=== PATIENT | female | born 1990 | race African-American/Black ===

== ENCOUNTER 2022-10-01 11:12 | Inpatient (IN) | payer BC, OTHER ==
[~2022-10-01 11:12] MED LIST: Bupivacaine 0.25% HCL 30 ML VIAL ONE; ePHEDrine Sulfate 50 MG/10 ML VIAL ONE
[2022-10-01 11:43] VITALS: BMI 49.6
[2022-10-01] MEDS ORDERED: hydrALAZINE 20 MG/ML VIAL SLOW IVP PRN (12:23)
[2022-10-01] MEDS ORDERED: Promethazine HCl 25 MG/ML VIAL IM PRN ×2 (12:23→22:32)
[2022-10-01] MEDS ORDERED: Docusate 100 MG CAP PO PRN (12:23)
[2022-10-01] MEDS ORDERED: Acetaminophen 500 MG TAB PO PRN (12:23)
[2022-10-01] MEDS ORDERED: Diphenoxylate HCl/Atropine Tablet PO PRN (12:23)
[2022-10-01] MEDS ORDERED: Calcium Gluc 4.6 MEQ/10 ML (100 MG/ML) SLOW IVP PRN (12:23)
[2022-10-01] MEDS ORDERED: Lidocaine 1% (PF) 30 ML VIAL SC PRN (12:23)
[2022-10-01] MEDS ORDERED: Lorazepam 2 MG/ML VIAL SLOW IVP PRN (12:23)
[2022-10-01] MEDS ORDERED: Carboprost 250 MCG/ML AMP IM PRN (12:23)
[2022-10-01] MEDS ORDERED: Ondansetron PF 4 MG/2 ML Vial IVP PRN ×2 (12:23→22:32)
[2022-10-01] MEDS ORDERED: Misoprostol 200 MCG TAB PR PRN (12:23)
[2022-10-01] MEDS ORDERED: NS w/ Oxytocin 30 units 500 ML IV SCH ×2 (12:30)
[2022-10-01] MEDS ORDERED: Magnesium Sulfate 20 gm/500 ml 20 GM/500 ML BAG IVPB SCH (12:30)
[2022-10-01] MEDS ORDERED: Penicillin G Potassium 5 MILL.UNITS in Sodium Chloride 0.9% 100 ML IVPB SCH (12:30)
[2022-10-01 12:54] LABS: Hemoglobin 12.6 g/dL (12.0-15.5); Mean Corpuscular HGB CONC 33.1 g/dL (32.0-36.0); Mean Corpuscular Hemoglobin 23.8 pg (27.0-33.0); Mean Corpuscular Volume 71.9 fl (81.6-98.3); Mean Platelet Volume 11.5 fl (7.4-10.4); Platelet Count 203 10x3/uL (150-450); RBC Distribution Width 14.5 % (11.5-14.5); White Blood Cell (WBC) Count 7.6 10x3/uL (3.5-10.5)
[2022-10-01] MEDS: Lactated Ringer's 1,000 ML IV SCH (13:00)
[2022-10-01 13:46] LABS: Syphilis Antibody Nonreactive (Nonreactive); Syphilis Antibody Index 0.03 S/CO (<1.00 Non-Reactive)
[2022-10-01 13:47] LABS: HBSAg Index 0.16 S/CO (0-0.99); Hep B Surf Ag Non-Reactive S/CO (NonReactive)
[2022-10-01 13:50] LABS: SARS-CoV-2 NAA Rapid Test Not Detected (NotDetected)
[2022-10-01 15:02] LABS: ALT (SGPT) 80 U/L (8-55); AST (SGOT) 78 U/L (5-34); Albumin 3.4 g/dL (3.5-5.0); Alkaline Phosphatase 176 U/L (40-110); Anion Gap 13 mmol/L (10-20); BUN (Urea Nitrogen) 7 mg/dL (7.0-18.7); Bilirubin, Total 0.6 mg/dL (0.2-1.2); Calc. Creatinine Clearance 253 mL/min (70-130); Calcium 9.3 mg/dL (7.8-10.44); Carbon Dioxide 22 mmol/L (22-29); Chloride 102 mmol/L (98-107); Estimated GFR 120; Globulin 3.8 g/dL (2.4-3.5); Glucose 105 mg/dL (70-105); Potassium 3.8 mmol/L (3.5-5.1); Protein, Total 7.2 g/dL (6.0-8.3); Sodium 133 mmol/L (136-145)
[2022-10-01] MEDS: Penicillin G 2.5 MILL.units 2.5 MILL.UNITS in Premix Bag 1 BAG IVPB SCH ×3 (17:00→23:17)
[2022-10-01] MEDS: Labetalol HCl 100 MG TAB PO SCH (20:09)
[2022-10-01] MEDS ORDERED: Zolpidem Tartrate 5 MG TAB PO PRN (21:00)
[2022-10-01] MEDS ORDERED: Fentanyl 2 mcg/Bup 0.1% Cadd 100 ML ONE (22:30)
[2022-10-01] MEDS ORDERED: diphenhydrAMINE 50 MG/ML VIAL IVP PRN (22:32)
[2022-10-01] MEDS ORDERED: ePHEDrine Sulfate 50 MG/10 ML VIAL SLOW IVP PRN (22:32)
[2022-10-01] MEDS ORDERED: Naloxone HCl 0.4 mg/ml Vial IVP PRN ×2 (22:32)
[2022-10-01] MEDS ORDERED: Acetaminophen 325 MG TAB PO PRN (22:32)
[2022-10-01] MEDS ORDERED: Lactated Ringer's 500 ML IV PRN (22:32)
[2022-10-01] MEDS ORDERED: Moisturizing Cream (Eucerin) 113 GM JAR TOP PRN (22:32)
[2022-10-01] MEDS ORDERED: Communication Order-Pharmacy FS SCH (22:45)
[2022-10-01] MEDS: Fentanyl 2 mcg/Bupivacaine 0.1% Cassette 100 ML EPIDURAL SCH (22:56)
[2022-10-01] MEDS ORDERED: PHENYLEPHRINE-NS 100 MCG/ML 10 ML SYRINGE ONE (23:53)
[2022-10-02] MEDS: Penicillin G 2.5 MILL.units 2.5 MILL.UNITS in Premix Bag 1 BAG IVPB SCH (04:07)
[2022-10-02] MEDS ORDERED: Magnesium Sulfate 20 gm/500 ml 20 GM/500 ML BAG ONE (04:18)
[2022-10-02] MEDS: Labetalol HCl 100 MG/20 ML VIAL ONE (04:24)
[2022-10-02] MEDS: Fentanyl 2 mcg/Bupivacaine 0.1% Cassette 100 ML EPIDURAL SCH (05:35)
[2022-10-02 08:46] LABS: RapidComm Collect By CBRN
[2022-10-02 08:47] LABS: RapidComm Collect By CBRN; pH (Cord, venous) 7.332 (7.250-7.350)
[2022-10-02] MEDS ORDERED: Milk Of Magnesia 30 ML UDCUP PO PRN (08:50)
[2022-10-02] MEDS ORDERED: Boostrix 0.5 ML (Tdap) VIAL (>/=7 yrs of age) IM ONE (08:50)
[2022-10-02] MEDS ORDERED: Preparation H Ointment 28 GM TUBE PR PRN (08:50)
[2022-10-02] MEDS ORDERED: diphenhydrAMINE 25 MG CAP PO PRN (08:50)
[2022-10-02] MEDS ORDERED: Varicella virus, LIVE 0.5 ML VIAL SC ONE (08:50)
[2022-10-02] MEDS ORDERED: Bisacodyl 10 MG SUPP PR PRN (08:50)
[2022-10-02] MEDS ORDERED: Lanolin Ointment 7 GM TUBE TOP PRN (08:50)
[2022-10-02] MEDS ORDERED: hydrALAZINE 20 MG/ML VIAL SLOW IVP PRN (08:50)
[2022-10-02] MEDS ORDERED: Ondansetron PF 4 MG/2 ML Vial IVP PRN (08:50)
[2022-10-02] MEDS ORDERED: Benzocaine-Menthol 82.5 ML CAN TOP PRN (08:50)
[2022-10-02] MEDS ORDERED: Promethazine HCl 25 MG/ML VIAL IM PRN (08:50)
[2022-10-02] MEDS ORDERED: NS w/ Oxytocin 30 units 500 ML IV SCH (09:00)
[2022-10-02] MEDS ORDERED: NS w/ Oxytocin 30 units 500 ML ONE (09:49)
[2022-10-02] MEDS ORDERED: Labetalol HCl 100 MG/20 ML VIAL ONE (10:47)
[2022-10-02] MEDS: Labetalol HCl 100 MG TAB PO SCH ×2 (11:20→21:15)
[2022-10-02] MEDS: Ibuprofen 800 MG TAB PO SCH (21:17)
[2022-10-02] MEDS: Docusate 100 MG CAP PO SCH (21:47)
[2022-10-02] MEDS ORDERED: Zolpidem Tartrate 5 MG TAB PO PRN (23:00)
[2022-10-02] MEDS ORDERED: HYDROcodone/Acetaminophen 5/325 mg Tablet PO PRN (23:00)
[2022-10-02] MEDS ORDERED: Labetalol HCl 100 MG TAB PO SCH (23:15)
[2022-10-03] MEDS: Labetalol HCl 100 MG/20 ML VIAL ONE (07:03)
[2022-10-03] MEDS: Ibuprofen 800 MG TAB PO SCH ×4 (07:06→21:12)
[2022-10-03] MEDS: Labetalol HCl 200 MG TAB PO SCH ×2 (08:06→21:12)
[2022-10-03] MEDS: Ferrous Sulfate 325 MG TAB PO SCH ×3 (09:49→14:45)
[2022-10-03] MEDS: Docusate 100 MG CAP PO SCH ×3 (09:50→21:12)
[2022-10-04] MEDS: Ibuprofen 800 MG TAB PO SCH (05:22)
[2022-10-04] MEDS: Ferrous Sulfate 325 MG TAB PO SCH ×2 (07:21→15:39)
[2022-10-04] MEDS: Labetalol HCl 200 MG TAB PO SCH (07:41)
[2022-10-04] MEDS: Docusate 100 MG CAP PO SCH ×2 (07:41→21:05)
[2022-10-04] MEDS ORDERED: hydrALAZINE 20 MG/ML VIAL SLOW IVP SCH ×5 (08:15→21:00)
[2022-10-04 08:42] LABS: #Eosinphils 0.2 10x3/uL (0.0-0.5); #Monocytes 0.8 10x3/uL (0.0-1.1); #Neutrophils 6.2 10x3/uL (1.5-8.4); %Basophils 0.4 % (0.0-2.0); %Eosinophils 1.5 % (0.0-6.0); %Lymphocytes 29.7 % (18.0-47.0); %Monocytes 7.9 % (0.0-10.0); %Neutrophils 59.6 % (40.0-75.0); Hemoglobin 10.9 g/dL (12.0-15.5); Mean Corpuscular HGB CONC 32.8 g/dL (32.0-36.0); Mean Corpuscular Hemoglobin 23.9 pg (27.0-33.0); Mean Corpuscular Volume 72.6 fl (81.6-98.3); Mean Platelet Volume 11.2 fl (7.4-10.4); Platelet Count 208 10x3/uL (150-450); RBC Distribution Width 14.8 % (11.5-14.5); Red Blood Cell (RBC) Count 4.57 10x6/uL (3.90-5.03); White Blood Cell (WBC) Count 10.4 10x3/uL (3.5-10.5)
[2022-10-04 08:53] LABS: ALT (SGPT) 54 U/L (8-55); AST (SGOT) 48 U/L (5-34); Albumin 2.8 g/dL (3.5-5.0); Alkaline Phosphatase 138 U/L (40-110); Anion Gap 14 mmol/L (10-20); BUN (Urea Nitrogen) 12 mg/dL (7.0-18.7); Bilirubin, Total 0.3 mg/dL (0.2-1.2); Calc. Creatinine Clearance 225 mL/min (70-130); Calcium 8.7 mg/dL (7.8-10.44); Carbon Dioxide 20 mmol/L (22-29); Chloride 108 mmol/L (98-107); Estimated GFR 114; Globulin 3.3 g/dL (2.4-3.5); Glucose 128 mg/dL (70-105); Potassium 3.7 mmol/L (3.5-5.1); Protein, Total 6.1 g/dL (6.0-8.3); Sodium 138 mmol/L (136-145)
[2022-10-04] MEDS ORDERED: Ibuprofen 600 MG TAB PO PRN (10:54)
[2022-10-04] MEDS ORDERED: Labetalol HCl 200 MG TAB PO SCH ×3 (14:00→23:59)
[2022-10-04] MEDS ORDERED: Amlodipine 10 MG TAB PO SCH (21:45)
[2022-10-04] MEDS ORDERED: Hydrochlorothiazide 25 MG TAB PO SCH (21:45)
[2022-10-04] MEDS ORDERED: Carvedilol 3.125 MG TAB PO SCH (21:45)
[2022-10-05 05:04] LABS: #Eosinphils 0.2 10x3/uL (0.0-0.5); #Monocytes 0.8 10x3/uL (0.0-1.1); #Neutrophils 5.7 10x3/uL (1.5-8.4); %Basophils 0.4 % (0.0-2.0); %Eosinophils 1.7 % (0.0-6.0); %Lymphocytes 27.3 % (18.0-47.0); %Monocytes 8.3 % (0.0-10.0); %Neutrophils 61.1 % (40.0-75.0); Hemoglobin 9.9 g/dL (12.0-15.5); Mean Corpuscular HGB CONC 33.1 g/dL (32.0-36.0); Mean Corpuscular Hemoglobin 23.9 pg (27.0-33.0); Mean Corpuscular Volume 72.2 fl (81.6-98.3); Mean Platelet Volume 11.7 fl (7.4-10.4); Platelet Count 194 10x3/uL (150-450); RBC Distribution Width 14.8 % (11.5-14.5); Red Blood Cell (RBC) Count 4.14 10x6/uL (3.90-5.03); White Blood Cell (WBC) Count 9.4 10x3/uL (3.5-10.5)
[2022-10-05 05:15] LABS: Anion Gap 14 mmol/L (10-20); BUN (Urea Nitrogen) 13 mg/dL (7.0-18.7); Calc. Creatinine Clearance 225 mL/min (70-130); Calcium 8.5 mg/dL (7.8-10.44); Carbon Dioxide 21 mmol/L (22-29); Chloride 106 mmol/L (98-107); Estimated GFR 114; Glucose 177 mg/dL (70-105); Magnesium 1.4 mg/dL (1.6-2.6); Potassium 3.5 mmol/L (3.5-5.1); Sodium 137 mmol/L (136-145)
[2022-10-05] MEDS: HYDROcodone/Acetaminophen 5/325 mg Tablet PO PRN (05:15)
[2022-10-05] MEDS ORDERED: Carvedilol 3.125 MG TAB PO SCH (08:00)
[2022-10-05] MEDS ORDERED: Magnesium 2 GM/50 ML(in water) 2 GM in Premix Bag 1 BAG IVPB SCH (08:15)
[2022-10-05] MEDS: Potassium Chloride 20 MEQ TAB PO SCH (08:29)
[2022-10-05] MEDS: Ferrous Sulfate 325 MG TAB PO SCH ×2 (08:30→16:36)
[2022-10-05] MEDS: Docusate 100 MG CAP PO SCH ×2 (08:30→21:31)
[2022-10-05] MEDS ORDERED: Amlodipine 10 MG TAB PO SCH (09:00)
[2022-10-05] MEDS ORDERED: Hydrochlorothiazide 25 MG TAB PO SCH (09:00)
[2022-10-05] MEDS ORDERED: Carvedilol 6.25 MG TAB PO SCH (17:00)
[2022-10-05] MEDS ORDERED: Labetalol HCl 100 MG/20 ML VIAL SLOW IVP PRN (21:14)
[2022-10-05] MEDS ORDERED: Labetalol HCl 100 MG/20 ML VIAL SLOW IVP SCH (22:45)
[2022-10-06] MEDS ORDERED: Labetalol HCl 100 MG/20 ML VIAL SLOW IVP SCH (00:45)
[2022-10-06] MEDS ORDERED: hydrALAZINE 20 MG/ML VIAL SLOW IVP SCH (01:15)
[2022-10-06] MEDS ORDERED: hydrALAZINE 20 MG/ML VIAL SLOW IVP PRN (02:11)
[2022-10-06] MEDS ORDERED: Carvedilol 12.5 MG TAB PO SCH (02:15)
[2022-10-06] MEDS ORDERED: Electrolyte Replacement Protocol FS SCH (02:15)
[2022-10-06] MEDS ORDERED: Potassium Chloride 20 MEQ TAB PO SCH (02:30)
[2022-10-06] MEDS: Magnesium 2 GM/50 ML(in water) 2 GM in Premix Bag 1 BAG IVPB SCH ×2 (02:57→04:55)
[2022-10-06] MEDS: HYDROcodone/Acetaminophen 5/325 mg Tablet PO PRN (03:21)
[2022-10-06 03:48] LABS: Magnesium 1.5 mg/dL (1.6-2.6)
[2022-10-06] MEDS: Docusate 100 MG CAP PO SCH (08:27)
[2022-10-06] MEDS: Potassium Chloride 20 MEQ TAB PO SCH (08:28)
[2022-10-06] MEDS: Ferrous Sulfate 325 MG TAB PO SCH (08:28)
[2022-10-06] MEDS: hydrALAZINE 25 MG TAB PO SCH ×2 (08:52→15:37)
[2022-10-06] MEDS: Carvedilol 12.5 MG TAB PO SCH ×2 (08:52→17:08)
[2022-10-06] MEDS ORDERED: NIFEdipine XL 90 MG TAB PO SCH (09:00)
[2022-10-06 13:59] VITALS: BP 126/59; TEMP 98
[2022-10-06] MEDS: Penicillin G 2.5 MILL.units 2.5 MILL.UNITS in Premix Bag 1 BAG IVPB SCH ×2 (15:19→15:20)
[2022-10-06] MEDS: Lactated Ringer's 1,000 ML IV SCH ×2 (15:19→15:33)
== END 2022-10-06 17:30 | disposition home or self-care (01) | DRG 807 ==
LOC: CSHLD/OP 11:12 → CSHLD 12:32 → CSHPP 10-03 09:30
PROVIDERS: ADMIT Obstetrics & Gynecology; ATTEND Obstetrics & Gynecology
PROC: 3E033VJ Introduction of Other Hormone into Peripheral Vein, Percutaneous Approach (ICD-10-PCS; 2022-10-01)
PROC: 10907ZC Drainage of Amniotic Fluid, Therapeutic from Products of Conception, Via Natural or Artificial Opening (ICD-10-PCS; 2022-10-01)
PROC: 10H07YZ Insertion of Other Device into Products of Conception, Via Natural or Artificial Opening (ICD-10-PCS; 2022-10-01)
PROC: 10E0XZZ Delivery of Products of Conception, External Approach (ICD-10-PCS; principal; 2022-10-02)
PROC: 0HQ9XZZ Repair Perineum Skin, External Approach (ICD-10-PCS; 2022-10-02)
DX: O11.4 Pre-existing hypertension with pre-eclampsia, complicating childbirth (principal); Z37.0 Single live birth; O10.92 Unspecified pre-existing hypertension complicating childbirth; Z3A.36 36 weeks gestation of pregnancy; Z20.822 Contact with and (suspected) exposure to COVID-19; O24.425 Gestational diabetes mellitus in childbirth, controlled by oral hypoglycemic drugs; Z79.899 Other long term (current) drug therapy; Z79.84 Long term (current) use of oral hypoglycemic drugs; O70.0 First degree perineal laceration during delivery; E66.9 Obesity, unspecified; O99.214 Obesity complicating childbirth; E83.42 Hypomagnesemia; O99.285 Endocrine, nutritional and metabolic diseases complicating the puerperium
CPT/HCPCS: 36415; 51702; 80048; 80053; 82805; 83735; 85025; 85027; 86780; 86850; 86900; 86901; 87340; 93005; 93010; 99285; J0360; J2540; J2590; J3475; J3490; J7120; S0020; U0002